=== PATIENT | female | born 1945 | race Caucasian/White ===

== ENCOUNTER → 2016-06-19 | Outpatient (CLI) | payer MEDICARE ==
[~2016-06-19] MED LIST: ASPI81TA28 PO; ATOR-22 PO; CALC8.5C PO; FLUO10CA48 PO; FLUO40CA8 PO; GLUCTAB18 PO; MULT-506 PO; PRLSR20 PO
[2016-06-19 15:59] LABS: CHOLESTEROL 167 mg/dl (0-200); CHOLESTEROL/HDL RATIO 2.1; HDL CHOLESTEROL 78 mg/dl; TRIGLYCERIDES 59 mg/dl (0-150); VERY LOW DENSITY LIPOPROT CALC 12 mg/dl
== END | disposition home or self-care (01) ==
LOC: C.LABSPEC 15:12
PROVIDERS: ATTEND Internal Medicine
DX: E78.5 Hyperlipidemia, unspecified (principal); Z11.59 Encounter for screening for other viral diseases

== ENCOUNTER → 2016-10-25 | Outpatient (CLI) | payer MEDICARE ==
--- NOTE | 2016-10-25 13:49 | MAMMOGRAPHY REPORT ---
BILATERAL DIGITAL SCREENING MAMMOGRAM WITH CAD: 10/25/2016 CLINICAL HISTORY: Routine screening. Patient has no complaints. TECHNIQUE: Current study was also evaluated with a Computer Aided Detection (CAD) system. Bilateral CC and MLO views were obtained. COMPARISON: Comparison is made to exams dated: 10/21/2015 mammogram, 09/16/2014 mammogram, 01/30/2012 m ammogram, 01/23/2011 mammogram - [facility], 06/24/2008, and 06/12/2007. BREAST COMPOSITION: There are scattered areas of fibroglandular density in both breasts. FINDINGS: No suspicious masses, calcifications, or areas of architectural distortion are noted in ei ther breast. There has been no significant interval change compared to prior exams. Scattered bilater al benign-appearing calcifications are not significantly changed. IMPRESSION: ACR BI-RADS CATEGORY 2: BENIGN There is no mammographic evidence of malignancy. A 1 year screening mammogram is recommended. The pa tient will receive written notification of the results. Approximately 10% of breast cancers are not detected with mammography. A negative mammographic report should not delay biopsy if a clinically suggestive mass is present. Chata Howard M.D. ah/:10/25/2016 12:47:57 Buttonhole Facer: Jennifer OWEN(Vibha)(Alicia), [facility] letter sent: Normal 1/2 BI-RADS Code: ACR BI-RADS Category 2: Benign
== END | disposition home or self-care (01) ==
LOC: C.MAMM 09:36
PROVIDERS: ATTEND Obstetrics & Gynecology
DX: Z12.31 Encounter for screening mammogram for malignant neoplasm of breast (principal)

== ENCOUNTER → 2017-01-14 | Outpatient (CLI) | payer MEDICARE ==
--- NOTE | 2017-01-14 10:55 | DIAGNOSTIC IMAGING REPORT ---
CHEST 2 VIEWS ROUTINE HISTORY: 71 years-old Female COUGH acute cough. COMPARISON: Chest radiograph 08/28/2010 TECHNIQUE: PA and lateral views of the chest FINDINGS: Cardiac silhouette is mildly enlarged. Retrocardiac opacity with air-fluid level suggests hiatal hernia with partially intrathoracic stomach, new from comparison. There is atherosclerosis of the aorta. There is no pneumothorax, pleural effusion, lobar airspace consolidation or overt pulmonary edema. Subsegmental linear opacity of the lingula is noted. Bones are grossly intact with degenerative changes about the bilateral shoulders. IMPRESSION: 1. Subsegmental atelectasis or scarring of the inferior segment lingular without acute cardiopulmonary process. 2. Moderate hiatal hernia with partially intrathoracic stomach, new from comparison study 08/28/2010. The above report was generated using voice recognition software. It may contain grammatical, syntax or spelling errors. Electronically signed by: Nehemias Tan M.D. 01/14/2017 10:54 AM Dictated Date/Time: 01/14/2017 10:52 AM
== END | disposition home or self-care (01) ==
LOC: C.RAD 10:22
PROVIDERS: ATTEND Internal Medicine
DX: R05 Cough (principal)

== ENCOUNTER → 2017-01-23 | Outpatient (CLI) | payer MEDICARE | END | disposition home or self-care (01) | LOC: C.PAPS 17:00 | PROVIDERS: ATTEND Obstetrics & Gynecology | DX: Z01.419 Encounter for gynecological examination (general) (routine) without abnormal findings (principal) ==

== ENCOUNTER → 2017-02-04 | Outpatient (CLI) | payer MEDICARE ==
[2017-02-04 18:52] LABS: BASO % 0.3 %; BASO ABS # 0.02 K/uL (0-0.2); COMPLETE YES; EOS % 2.1 %; HEMATOCRIT 40.4 % (37-47); IG% 0.3 %; LYMPH % 33.4 %; LYMPH ABS # 2.05 K/uL (1.2-3.4); MEAN CORPUSCULAR HEMOGLOBIN 29.5 pg (25-34); MEAN CORPUSCULAR HGB CONC 32.4 g/dl (32-36); MEAN PLATELET VOLUME 9.7 fL (7.4-10.4); NEUT % 55.9 %; PLATELET COUNT 286 K/uL (130-400); RED BLOOD COUNT 4.44 M/uL (4.2-5.4); WHITE BLOOD COUNT 6.13 K/uL (4.8-10.8)
[2017-02-04 19:04] LABS: ALT/SGPT 24 U/L (12-78); AST/SGOT 14 U/L (15-37); BLOOD UREA NITROGEN 6 mg/dl (7-18); BUN/CREATININE RATIO 7.8 (10-20); CALCIUM 9.1 mg/dl (8.5-10.1); CARBON DIOXIDE 29 mmol/L (21-32); CHLORIDE 103 mmol/L (98-107); CHOLESTEROL 233 mg/dl (0-200); CREATININE 0.81 mg/dl (0.60-1.20); GLUCOSE 85 mg/dl (70-99); POTASSIUM 3.7 mmol/L (3.5-5.1); SODIUM 137 mmol/L (136-145)
[2017-02-04 19:14] LABS: ALB/GLOB RATIO 0.9 (0.9-2); ALKALINE PHOSPHATASE 83 U/L (45-117); CHOLESTEROL/HDL RATIO 2.7; HDL CHOLESTEROL 86 mg/dl; TRIGLYCERIDES 86 mg/dl (0-150); VERY LOW DENSITY LIPOPROT CALC 17 mg/dl
== END | disposition home or self-care (01) ==
LOC: C.LABSPEC 18:13
PROVIDERS: ATTEND Internal Medicine
DX: E78.5 Hyperlipidemia, unspecified (principal); R53.83 Other fatigue; M85.80 Other specified disorders of bone density and structure, unspecified site

== ENCOUNTER → 2017-09-06 | Outpatient (CLI) | payer MEDICARE | END | disposition home or self-care (01) | LOC: C.LABSPEC 16:29 | PROVIDERS: ATTEND Internal Medicine | DX: N39.0 Urinary tract infection, site not specified (principal) ==

== ENCOUNTER → 2017-12-06 | Outpatient (CLI) | payer MEDICARE ==
--- NOTE | 2017-12-10 06:59 | MAMMOGRAPHY REPORT ---
BILATERAL DIGITAL SCREENING MAMMOGRAM TOMOSYNTHESIS WITH CAD: 12/06/2017 CLINICAL HISTORY: Routine screening. TECHNIQUE: The study was acquired using full field digital technology and interpreted from soft copy. Breast tomosynthesis in addition to standard 2D mammography was performed. Current study was also ev aluated with a Computer Aided Detection (CAD) system. COMPARISON: Comparison is made to exams dated: 10/25/2016 mammogram, 10/21/2015 mammogram, 09/16/2014 emeli mogram, 09/15/2013 mammogram, 01/30/2012 mammogram, and 01/23/2011 mammogram - [facility] nter. BREAST COMPOSITION: There are scattered areas of fibroglandular density in both breasts. FINDINGS: No suspicious masses, calcifications, or areas of architectural distortion are noted in either breast . There has been no significant interval change compared to prior exams. IMPRESSION: ACR BI-RADS CATEGORY 1: NEGATIVE There is no mammographic evidence of malignancy. A 1 year screening mammogram is recommended.( 019) The patient will receive written notification of the results. Some breast cancers are not detected with mammography. A negative mammographic report should not alexander y biopsy if a clinically suggestive mass is present. Chata Howard M.D. ah/:12/06/2017 15:35:56 Lockstitch Binder: RT Myke(Vibha)(M), [facility] letter sent: Normal 1/2 BI-RADS Code: ACR BI-RADS Category 1: Negative
== END | disposition home or self-care (01) ==
LOC: C.MAMM 14:43
PROVIDERS: ATTEND Obstetrics & Gynecology
DX: Z12.31 Encounter for screening mammogram for malignant neoplasm of breast (principal)

== ENCOUNTER 2022-11-30 21:45 | Observation (INO) ==
[2022-11-30] MEDS ORDERED: KETOROLAC TROMETHAMINE 15 MG/ML VIAL IV STA (21:52)
[2022-11-30] MEDS ORDERED: MoRPHine SULFATE 4 MG/ML 1 ML CARP\\VIAL IV STA (21:52)
[2022-11-30] MEDS ORDERED: ONDANSETRON INJ 2 MG/ML 2 ML VIAL IV STA (21:52)
[2022-11-30] MEDS ORDERED: ACETAMINOPHEN 1,000 MG/100 ML VIAL IV STA (21:52)
--- NOTE | 2022-11-30 21:58 | Emergency Department Note ---
Impression & Plan Fracture of proximal humerus, Fall ED Provider Note NAME: SATYA ALFORD AGE: 77 SEX: F : 1945 ARRIVES VIA: Ambulance INFORMANT: [Patient][ems] ED PROVIDER(S): [Stanley Sheffield MD] CHIEF COMPLAINT: Shoulder pain HISTORY OF PRESENT ILLNESS: The patient is a 77-year-old female who was in her normal state of health this evening. About an hour and a half ago, she caught her foot and tripped and fell onto her left shoulder. She has pain in the left shoulder itself, she is concerned for fracture. The pain is worse to move the shoulder. There was no loss of consciousness, no chest pain or shortness of breath or dizziness. She did not hit her head. She denies neck pain, back pain, chest pain or abdominal pain. She is not on blood thinning agents PMHx/PSHx: See Below SOCIAL HISTORY: See Below. PHYSICAL EXAM: GENERAL: Patient is in moderate distress from pain. HEENT: No acute trauma, normocephalic atraumatic, mucous membranes moist, no nasal congestion. NECK: No stridor, no adenopathy, nontender cervical spine, trachea is midline. LUNGS: Clear to auscultation bilaterally, no wheeze, no rhonchi, breath sounds equal. ABDOMEN: Soft, nontender, bowel sounds positive, no peritonitis. EXTREMITIES: No cyanosis. There is no obvious dislocation of the left shoulder however, she is quite painful to palpate the shoulder joint and to move the shoulder joint. There is a strong distal left radial pulse and the radial ulnar and median nerve on the left are intact. No pain to palpate or move the left elbow. NEUROLOGIC: Oriented x 3, no acute motor or sensory deficits, no focal weakness. SKIN: No rash, no jaundice, no diaphoresis. DIFFERENTIAL DIAGNOSIS: Shoulder fracture, shoulder dislocation, sprain, strain, contusion, neurovascular compromise, among others. EMERGENCY DEPARTMENT COURSE/PROCEDURES: Prior/Outside records reviewed: EMS notes. MEDICAL DECISION MAKING: The patient presents with pain in the left shoulder after falling onto the shoulder. It was a mechanical fall. There was no loss of conscious, chest pain or shortness of breath. No headache or neck pain. No chest pain. She had no numbness or tingling in the left upper extremity. Films of the left shoulder were performed, there was a humeral head and neck fracture per my review, no obvious dislocation by x-ray. A left shoulder CT was performed, there was no dislocation, a humeral head fracture was seen. The patient did receive IV morphine for pain, IV Toradol for pain, IV Tylenol for pain. She was given IV Zofran for nausea. Patient's pain is still severe. She has required nasal cannula O2 supplementation to offset the sedation caused by the narcotic pain meds administered. The patient is in need of a hospital stay. She will require pain control overnight. I did speak with orthopedics, Dr. Munroe. The patient does not require any emergent orthopedic intervention this evening. She needs close follow-up though to be sure things are healing properly. I did speak with case management, the on-call hospitalist was consulted. DISPOSITION: Patient's presentation and findings warrant a hospital stay. Past Med/Surg History Medical History Anxiety and depression GERD (gastroesophageal reflux disease) History of COVID-19 2021, home test, not hosp; no symptoms, had exposure>resolved. Mixed hyperlipidemia Obesity (BMI 30-39.9) Osteopenia Surgical History History of cataract surgery History of hip replacement Hx of colonoscopy Family History Grandfather (Paternal) Bone cancer Grandmother (Maternal) Pancreatic cancer Mother Heart disease Grandmother (Paternal) Stroke Grandmother (Maternal) Stroke Other No pertinent family history Denies family history of Ovarian cancer Prostate cancer Social History Smoking Status: Never smoker Second Hand Exposure: Yes (hx growing up); Do You Dip or Chew Tobacco: No; Hx Alcohol Use: Yes Hx Substance Use: No Preferred Language: American Communication Ability: Effective Visual Impairment: No Limitations Hearing Ability: Normal [employer] Required: No Beliefs That Will Affect Care: None marital status: Current Living Situation: Spouse current occupational status: retired Feels Safe at Home: Yes Dental Care, Regularly: Yes Physical Activity Frequency: 3-4 Times per Week Seatbelt Use: always Assistive Devices: Glasses Allergies Allergies Allergy/AdvReac Type Severity Reaction Status Date / Time No Known Allergies Allergy Verified 11/30/22 22:34 Home Meds Home Medications Medication Instructions Recorded Confirmed bupropion HCl 100 mg tablet,12 hr 100 mg PO QAM 04/18/20 11/30/22 sustained-release (Wellbutrin SR) multivitamin (Daily Multi-Vitamin 1 tab PO DAILY 04/18/20 11/30/22 tablet) glucosamine-chondroitin 250 mg-200 1 tab PO QAM 09/05/22 11/30/22 mg tablet (Osteo Bi-Flex) fluoxetine 20 mg tablet 20 mg PO QAM 10/09/22 11/30/22 mirtazapine 15 mg tablet 15 mg PO HS PRN anxiety 10/09/22 11/30/22 omeprazole 20 mg capsule,delayed 20 mg PO QAM 10/09/22 11/30/22 release Previous Rx's Medication Instructions Recorded atorvastatin 20 mg tablet 20 mg PO DAILY #90 tabs 12/27/21 fluoxetine 40 mg capsule 40 mg PO QAM #1 cap 08/06/22 Results & Data (ED) Vital Signs Vital Signs - 24 hr 11/30/22 21:46 11/30/22 22:40 Temperature 37 C Temperature Source Temporal Artery Scan Pulse Rate 83 Pulse Rate [Apical] 78 Respiratory Rate 18 17 Respiratory Depth Normal Blood Pressure 115/77 Blood Pressure [Right Arm] 124/73 Blood Pressure Mean 89 Blood Pressure Mean [Right Arm] 90 Pulse Oximetry 97 98 Oxygen Delivery Method Room Air Room Air Sepsis Recent Fever Within 48 Hours No Sepsis New/Unexplained Change in Mental Status No Sepsis Action Taken by Nursing No Action Required Home Medications Current Medication List: was personally reviewed by me Administered Medications Morphine Sulfate (Morphine Sulfate 4 Mg/Ml 1 Ml Carp\Vial) 4 mg IV Q15M PRN PRN Reason: Pain Stop: 12/14/22 21:53 Last Admin: 11/30/22 22:50 Dose: 4 mg Documented By: GA Discontinued Medications Acetaminophen (Ofirmev) 1,000 mg in 100 mls @ 400 mls/hr IV NOW STA Stop: 11/30/22 22:06 Last Infusion: 11/30/22 22:20 Dose: 0 mls/hr Documented By: Admin: 11/30/22 22:00 Dose: 400 mls/hr Documented By: GA Ketorolac Tromethamine (Ketorolac Tromethamine 15 Mg/Ml Vial) 15 mg IV NOW STA Stop: 11/30/22 21:53 Last Admin: 11/30/22 21:59 Dose: 15 mg Documented By: EMB Morphine Sulfate (Morphine Sulfate 4 Mg/Ml 1 Ml Carp\Vial) 4 mg IV NOW STA Stop: 11/30/22 21:53 Last Admin: 11/30/22 22:00 Dose: 4 mg Documented By: EMB Ondansetron HCl (Ondansetron Inj 2 Mg/Ml 2 Ml Vial) 4 mg IV NOW STA Stop: 11/30/22 21:53 Last Admin: 11/30/22 21:59 Dose: 4 mg Documented By: EMB Imaging Data My Impression: Left shoulder film: Per my review, there is a humeral head and neck fracture, no obvious humeral dislocation. Radiologist's Impression: Shoulder CT 11/30/22 22:18 Exam(s): CT LEFT SHOULDER Without Contrast EXAM: CT Left Upper Extremity Without Intravenous Contrast, Shoulder CLINICAL HISTORY: Reason for exam: fall, complex fx. TECHNIQUE: Axial computed tomography images of the left shoulder without intravenous contrast. CTDI is 24.58 mGy and DLP is 508.61 mGy-cm. Automated exposure control was utilized for the study. A dose lowering technique was utilized adhering to the principles of ALARA. COMPARISON: No relevant prior studies available. FINDINGS: Bones/joints: Comminuted minimally displaced fracture of the proximal left humerus. No dislocation. Soft tissues: Unremarkable. IMPRESSION: As above Electronically signed by: Calin Mayes MD 11/30/22 23:28 PM Discharge Plan Visit Data Chief Complaint: Shoulder Pain Stated Complaint: GROUND LEVEL FALL, SHOULDER PAIN ED Provider: Stanley Sheffield Discharge Problem: Fracture of proximal humerus, Fall Patient Disposition: Admitted As Inpatient Condition: Fair Forms Stand Alone Forms: My [facility], Virtual Emergency Department, Important Visit Information Prescriptions Prescriptions: No Action bupropion HCl [Wellbutrin SR] 100 mg tablet sustained-release 12 hr 100 mg PO QAM multivitamin [Daily Multi-Vitamin] Tablet 1 tab PO DAILY atorvastatin 20 mg tablet 20 mg PO DAILY Qty: 90 3RF fluoxetine 40 mg capsule 40 mg PO QAM Qty: 1 0RF Rx Instructions: TOTAL DOSE 60 MG--TAKES WITH 20 MG TAB. fluoxetine 20 mg tablet 20 mg PO QAM Rx Instructions: TOTAL DOSE 60 MG--TAKES WITH 40 MG CAP omeprazole 20 mg capsule,delayed release(DR/EC) 20 mg PO QAM mirtazapine 15 mg tablet 15 mg PO HS PRN (Reason: anxiety) glucosamine-chondroitin [Osteo Bi-Flex] 250-200 mg Tablet 1 tab PO QAM Referrals Referrals: Heather Durham MD [Primary Care Provider] - Andry Sheikh DO [Physician] - Fracture of proximal humerus Qualifiers: Encounter type: initial encounter Fracture type: closed Fracture morphology: other fracture Fracture alignment: displaced Laterality: left Qualified Code(s): S42.292A - Other displaced fracture of upper end of left humerus, initial encounter for closed fracture Fall Qualifiers: Encounter type: initial encounter Qualified Code(s): W19.XXXA - Unspecified fall, initial encounter
[2022-11-30] MEDS: MoRPHine SULFATE 4 MG/ML 1 ML CARP\\VIAL IV PRN (22:50)
--- NOTE | 2022-11-30 23:29 | CT Scan Report ---
Exam(s): CT LEFT SHOULDER Without Contrast EXAM: CT Left Upper Extremity Without Intravenous Contrast, Shoulder CLINICAL HISTORY: Reason for exam: fall, complex fx. TECHNIQUE: Axial computed tomography images of the left shoulder without intravenous contrast. CTDI is 24.58 mGy and DLP is 508.61 mGy-cm. Automated exposure control was utilized for the study. A dose lowering technique was utilized adhering to the principles of ALARA. COMPARISON: No relevant prior studies available. FINDINGS: Bones/joints: Comminuted minimally displaced fracture of the proximal left humerus. No dislocation. Soft tissues: Unremarkable. IMPRESSION: As above Electronically signed by: Calin Mayes MD 11/30/22 23:28 PM
[2022-12-01 00:22] LABS: Hemoglobin 11.3 g/dl (12.0-16.0); Mean Corpuscular Hgb Conc 33.2 g/dL (32.0-36.0); Mean Corpuscular Volume 90.2 fL (80.0-100.0); Mean Platelet Volume 9.9 fL (9.4-12.4); Platelet Count 226 K/uL (130-400); RDW Coefficient of Variation 14.3 % (11.5-14.5); RDW Standard Deviation 46.9 fL (36.4-46.3); Red Blood Count 3.77 M/uL (4.20-5.40)
--- NOTE | 2022-12-01 00:24 | History & Physical Report ---
Date of Service December 01, 2022 Assessment & Plan (1) Fracture of proximal humerus: Plan: -L shoulder XR + CT w/ comminuted minimally displaced fracture of L proximal humerus, s/p mechanical fall -Pt hemodynamically stable and injury with no evidence of neurovascular compromise on exam -Case discussed with orthopedics in ER- will not need emergent management -Orthopedics consulted for AM -Pain regimen -Tylenol 1000 mg IV q8h PRN -Morphine 2mg IV q4h PRN -PT/OT consulted (2) Hypoxia: Plan: -Secondary to opioid medication administration- morphine 4 mg IV x2 within 1 hour -Stable respiratory status on RA at time of my evaluation -Continue to monitor (3) Anxiety: Plan: -Continue fluoxetine -Mirtazapine PRN per home regimen (4) Depression: Plan: -Continue fluoxetine + Wellbutrin (5) GERD (gastroesophageal reflux disease): Plan: -Continue omeprazole or formulary equivalent (6) Mixed hyperlipidemia: Plan: -Continue atorvastatin Plan FENGI: Regular Code status: DNI DVT prophylaxis: SCDs, deferring Lovenox for now due to recent fall Isolation: None Disposition: Medical/surgical History of Present Illness Chief Complaint: L shoulder fracture Primary Care Provider: Heather Durham MD Pt is 77 yo F with PMH HLD, GERD, anxiety/depression presenting with shoulder pain s/p mechanical fall. Pt was at home earlier in evening and ambulating when she tripped and fell on L shoulder. She had immediate sharp pain over the entire shoulder afterward and came to ER for evaluation. Did not lose consciousness or have any preceding symptoms such as lightheadedness or dizziness prior to fall. No recent illnesses or medication changes. Pt arrived to ER hemodynamically stable. Initial evaluation significant for XR L shoulder and CT L shoulder demonstrating comminuted minimally displaced L proximal humerus fracture. CBC, BMP unremarkable. ER interventions include Toradol 15 mg IV, Zofran 4 mg IV, Tylenol 1000 mg IV, morphine 4 mg IV x2. Pt reportedly became hypoxic after administration of pain medications and started on 2L O2 NC. At present, pt reports no pain when laying at rest. She does report significant generalized L shoulder pain with any movement of the joint. Otherwise denies acute complaints, including dyspnea. Allergies Allergy/AdvReac Type Severity Reaction Status Date / Time No Known Allergies Allergy Verified 11/30/22 22:34 Home Medications Medication Instructions Recorded Confirmed Type bupropion HCl 100 mg tablet,12 hr 100 mg PO QAM 04/18/20 11/30/22 History sustained-release (Wellbutrin SR) multivitamin (Daily Multi-Vitamin 1 tab PO DAILY 04/18/20 11/30/22 History tablet) atorvastatin 20 mg tablet 20 mg PO DAILY #90 tabs 12/27/21 11/30/22 Rx fluoxetine 40 mg capsule 40 mg PO QAM #1 cap 08/06/22 11/30/22 Rx glucosamine-chondroitin 250 mg-200 1 tab PO QAM 09/05/22 11/30/22 History mg tablet (Osteo Bi-Flex) fluoxetine 20 mg tablet 20 mg PO QAM 10/09/22 11/30/22 History mirtazapine 15 mg tablet 15 mg PO HS PRN anxiety 10/09/22 11/30/22 History omeprazole 20 mg capsule,delayed 20 mg PO QAM 10/09/22 11/30/22 History release Past Med/Surg History Medical History Anxiety and depression GERD (gastroesophageal reflux disease) History of COVID-19 2021, home test, not hosp; no symptoms, had exposure>resolved. Mixed hyperlipidemia Obesity (BMI 30-39.9) Osteopenia Surgical History History of cataract surgery History of hip replacement Hx of colonoscopy Family History Grandfather (Paternal) Bone cancer Grandmother (Maternal) Pancreatic cancer Mother Heart disease Grandmother (Paternal) Stroke Grandmother (Maternal) Stroke Other No pertinent family history Denies family history of Ovarian cancer Prostate cancer Social History Smoking Status: Never smoker Second Hand Exposure: Yes (hx growing up); Do You Dip or Chew Tobacco: No; Hx Alcohol Use: Yes Hx Substance Use: No Preferred Language: Cambodian Communication Ability: Effective Visual Impairment: No Limitations Hearing Ability: Normal In Flight [employer] Member Required: No Beliefs That Will Affect Care: None marital status: Current Living Situation: Spouse current occupational status: retired Feels Safe at Home: Yes Dental Care, Regularly: Yes Physical Activity Frequency: 3-4 Times per Week Seatbelt Use: always Assistive Devices: Glasses Review of Systems Review of Systems: Per HPI/Subjective Physical Exam Physical Exam: General: well-appearing, no acute distress HEENT: PERRL, EOMI, conjunctivae clear without injection, anicteric sclerae, moist mucous membranes, clear oropharynx without exudate or erythema Neck: supple, trachea midline, no thyromegaly, no JVD, no cervical lymphadenopathy CV: RRR, normal S1 and S2, no murmurs Resp: CTAB, no increased work of breathing, no crackles or wheezes Abd: Soft, nontender, nondistended, no guarding or rebound, no hepatosplenomegaly MSK: Normal bulk of all four extremities. Tender to minimal palpation of L shoulder- over coracoid process + GH joint, no erythema or swelling noted. ROM testing Neuro: AOx3, no focal motor or sensory deficits- intact bronzer strength and sensorium of b/l UE Skin: no rashes or lesions, warm and dry Ext: no LE peripheral edema or erythema, capillary refill <2s in all four extremities, 2+ UE and LE peripheral pulses b/l Results & Data Results & Data Vital Signs (Past 12 Hours) Vital Signs Temp Pulse Pulse Resp BP BP Pulse Ox 11/30/22 22:40 78 17 124/73 98 11/30/22 21:46 37 C 83 18 115/77 97 O2 Del Method 11/30/22 22:40 Room Air 11/30/22 21:46 Room Air Supervising Physician Co-Signing Physician Notes Patient seen and examined, chart reviewed, case discussed with Dr. Quiñones and I agree with the assessment and plan as above. In brief, patient is a 77yo female with history of GERD presenting with left shoulder fracture following a ground level fall. Found to have a comminuted minimally displaced left proximal humerus fracture. On exam patient is resting in supine position, comfortable, NAD Skin - intact, no rashes/lesions HEENT - NC/AT, MMM, Neck supple Heart - +S1/S2, regular, no m/r/g Lungs - CTA Abd - +BS, soft, NT/ND Ext - warm, well perfused Labs and images reviewed Assessment/Plan - 77yo female presenting after ground level fall resulting in fracture of left proximal humerus Significant ongoing pain NV intact -Observation to medical for pain control -Ortho consultation appreciated Resident Activity Tracking Resident Involvement: Resident Care Provided Care Provided: Adult Hospital Medicine (1) Fracture of proximal humerus Encounter type: initial encounter Fracture alignment: displaced Fracture morphology: other fracture Fracture type: closed Laterality: left Qualified Code(s): S42.292A - Other displaced fracture of upper end of left humerus, initial encounter for closed fracture
[2022-12-01 00:31] LABS: BUN Creatinine Ratio 11.4 (10-20); Calcium 8.8 mg/dl (8.6-10.3); Creatinine Clr Calc Pharmacy 61.6 ml/min; Est GFR (African American) 84.3 ml/min; Est GFR (Non-African American) 72.7 ml/min; Potassium 3.5 mmol/L (3.5-5.1)
[2022-12-01] MEDS: MoRPHine SULFATE 4 MG/ML 1 ML CARP\\VIAL IV PRN (01:31)
--- NOTE | 2022-12-01 01:51 | Billing Data ---
Date of Service December 01, 2022 Coding Level of Care Code 79131 INT INP/OBS CARE
[2022-12-01] MEDS ORDERED: ACETAMINOPHEN 1,000 MG/100 ML VIAL IV PRN (02:02)
[2022-12-01] MEDS ORDERED: MIRTAZAPINE TAB 15 MG TAB PO PRN (02:02)
[2022-12-01] MEDS: MoRPHine SULFATE 2 MG/ML CARP IV PRN ×2 (06:08→10:15)
--- NOTE | 2022-12-01 07:29 | XRay Report ---
XR shoulder LT min 2V routine CLINICAL HISTORY: Fall. Left shoulder pain. COMPARISON STUDY: None. FINDINGS: Comminuted and displaced fracture within the left humeral neck which extends through the gr eater tuberosity of the humeral head. The greater tuberosity fragment demonstrates 9 mm of lateral di splacement. No dislocation. The left clavicle is intact. IMPRESSION: Left humeral head/neck fracture as above. No dislocation. ACT 112: Negative or not required by law. Electronically signed by: Jesus Baker M.D. 12/01/2022 7:28 AM
[2022-12-01] MEDS: ACETAMINOPHEN 500 MG TAB PO PRN ×2 (07:43→15:48)
[2022-12-01] MEDS: FLUoxetine HCL 20 MG CAP PO SCH (08:14)
[2022-12-01] MEDS: PANTOprazole 40 MG TAB PO SCH (08:15)
[2022-12-01] MEDS: ATORVASTATIN 20 MG TAB PO SCH (08:16)
[2022-12-01] MEDS: buPROPion SR 100 MG TABCR PO SCH (08:16)
--- NOTE | 2022-12-01 08:32 | Hospitalist Progress Note ---
Date of Service December 01, 2022 Assessment & Plan (1) Fracture of proximal humerus: Plan: - L shoulder XR + CT w/ comminuted minimally displaced fracture of L proximal humerus, s/p mechanical fall - Pt hemodynamically stable and injury with no evidence of neurovascular compromise on exam - inpatient pain regimen: Tylenol 1000 mg IV q8h PRN, Morphine 2mg IV q4h PRN - Orthopedics consulted - pt to remain in sling and f/u outpatient with them Saturday/Saturday this week, otherwise she is stable to leave from their perspective and will have sling for 6 weeks - PT/OT consulted - awaiting their evaluations Pt seen in the PM: Pt complaining of a lot of pain this afternoon, so will transition pt to oral pain management tonight to try to achieve reasonable po pain control prior to discharge, if she does well overnight can D/C tomorrow in the a.m. (2) Hypoxia: Plan: - suspect secondary to opioid medication administration- morphine 4 mg IV x2 within 1 hour - Stable respiratory status on RA at time of my evaluation - Continue to monitor, saturations last night good, will wean off oxygen today (3) Anxiety: Plan: -Continue fluoxetine -Mirtazapine PRN per home regimen (4) Depression: Plan: -Continue fluoxetine + Wellbutrin (5) GERD (gastroesophageal reflux disease): Plan: -Continue omeprazole or formulary equivalent (6) Mixed hyperlipidemia: Plan: -Continue atorvastatin Plan FENGI: Regular Code status: DNI DVT prophylaxis: SCDs, deferring Lovenox for now due to recent fall Isolation: None Disposition: Medical/surgical Admission and Anticipated Discharge Date Admission Date: December 01, 2022 Supervising Physician Co-Signing Physician Notes I personally examined the patient and verified kendrick points of history and exam, discussed case, and agree with decision making and plan documented by Dr. Kruse. Will transition patient to oral pain medications and anticipate discharge tomorrow. Subjective Pt is a 77 yo female with a past medical history of GERD, HLD, osteoporosis, and anxiety and depression who presents to the hospital on 11/30/22 for L proximal humerus fracture secondary to mechanical fall. Today, pt states she is feeling okay. She is still having significant L arm/shoulder pain, but states it is definitely better than it was yesterday. She otherwise states she is feeling well. She was able to eat breakfast without difficulty. No questions or concerns at this time. Review of Systems Review of Systems: Constitutional: denies fever, chills, Cardio: denies chest pain, palpitations Resp: denies shortness of breath, cough GI: denies abdominal pain, nausea, vomiting, Physical Exam Physical Exam: General:Alert and oriented, no acute distress, left arm in sling HEENT: Normocephalic, moist oral mucosa, Cardio: Regular rate and rhythm, Resp:Lungs clear to auscultation b/l, no wheezes or rhonchi, GI: Soft and nontender, nondistended, bowel sounds active Skin: Warm, pink, dry, Psych: Mood-affect congruence. Results & Data Results & Data Vital Signs (Past 12 Hours) Vital Signs Temp Pulse Pulse Pulse Resp BP BP 12/01/22 07:58 36.7 C 96 H 16 133/82 12/01/22 01:40 12/01/22 01:40 12/01/22 01:40 36.7 C 88 16 120/78 12/01/22 01:31 84 14 121/74 12/01/22 00:00 80 17 122/77 11/30/22 22:40 78 17 124/73 11/30/22 21:46 37 C 83 18 115/77 Pulse Ox O2 Del Method O2 Flow Rate 12/01/22 07:58 100 Nasal Cannula 2 12/01/22 01:40 Room Air, Nasal Cannula 2 12/01/22 01:40 Room Air, Nasal Cannula 2 12/01/22 01:40 96 Nasal Cannula 2 12/01/22 01:31 94 12/01/22 00:00 93 11/30/22 22:40 98 Room Air 11/30/22 21:46 97 Room Air Resident Activity Tracking Resident Involvement: Resident Care Provided Care Provided: Adult Hospital Medicine (1) Fracture of proximal humerus Encounter type: initial encounter Fracture alignment: displaced Fracture morphology: other fracture Fracture type: closed Laterality: left Qualified Code(s): S42.292A - Other displaced fracture of upper end of left humerus, initial encounter for closed fracture
--- NOTE | 2022-12-01 08:55 | Orthopedic Consultation ---
Date of Service December 01, 2022 Assessment & Plan (1) Fracture of proximal humerus: I talked her about the diagnosis and treatment options at bedside. This is a fracture that we can likely treat nonoperatively. She should do fairly well with it. I do want to follow her closely in the office with serial radiographs. She can follow-up in my office this week on Saturday or Saturday for repeat x- rays and to adjust her sling. She is orthopedically stable for discharge when medically ready. She will likely be in a sling for about 6 weeks. History of Present Illness Reason for Consultation: Left proximal humerus fracture. Requesting Physician: . Attending Physician: Ruth Godfrey DO Betty is a pleasant 77-year-old female who tripped and fell yesterday falling hard onto her left shoulder. She had immediate left shoulder pain. She came to the emergency room and radiographs demonstrated a moderately displaced four-part proximal humerus fracture. She was placed in a sling and admitted to the hospital for pain control. Orthopedics was consulted to evaluate and treat.. Allergies Allergy/AdvReac Type Severity Reaction Status Date / Time No Known Allergies Allergy Verified 11/30/22 22:34 Home Medications Medication Instructions Recorded Confirmed Type bupropion HCl 100 mg tablet,12 hr 100 mg PO QAM 04/18/20 11/30/22 History sustained-release (Wellbutrin SR) multivitamin (Daily Multi-Vitamin 1 tab PO DAILY 04/18/20 11/30/22 History tablet) atorvastatin 20 mg tablet 20 mg PO DAILY #90 tabs 12/27/21 11/30/22 Rx fluoxetine 40 mg capsule 40 mg PO QAM #1 cap 08/06/22 11/30/22 Rx glucosamine-chondroitin 250 mg-200 1 tab PO QAM 09/05/22 11/30/22 History mg tablet (Osteo Bi-Flex) fluoxetine 20 mg tablet 20 mg PO QAM 10/09/22 11/30/22 History mirtazapine 15 mg tablet 15 mg PO HS PRN anxiety 10/09/22 11/30/22 History omeprazole 20 mg capsule,delayed 20 mg PO QAM 10/09/22 11/30/22 History release Past Med/Surg History Medical History Anxiety and depression GERD (gastroesophageal reflux disease) History of COVID-19 2021, home test, not hosp; no symptoms, had exposure>resolved. Mixed hyperlipidemia Obesity (BMI 30-39.9) Osteopenia Surgical History History of cataract surgery RT/LT History of hip replacement RT. Hx of colonoscopy Family History Grandfather (Paternal) , 70s Bone cancer Grandmother (Maternal) , age 63 Pancreatic cancer Mother Heart disease Grandmother (Paternal) , 70s Stroke Grandmother (Maternal) Stroke Other No pertinent family history Denies family history of Ovarian cancer Prostate cancer Social History Smoking Status: Never smoker Second Hand Exposure: No; Do You Dip or Chew Tobacco: No; Hx Alcohol Use: Yes Alcohol type: wine Hx Substance Use: No Preferred Language: Italian Communication Ability: Effective Visual Impairment: No Limitations Hearing Ability: Normal Support Services Coordinator Required: No Beliefs That Will Affect Care: None marital status: Current Living Situation: Spouse current occupational status: retired Feels Safe at Home: Yes Dental Care, Regularly: Yes Physical Activity Frequency: 3-4 Times per Week Seatbelt Use: always Assistive Devices: Glasses Review of Systems All systems reviewed & are unremarkable except as noted in HPI & below. Physical Exam On physical examination of the left shoulder, she is wearing her sling as instructed. She has active motion of her hand and wrist. She does not have any ecchymosis she and there is no gross deformity.. Constitutional WD/WN, vitals as above Eyes PERRL, conjunctivae normal, anicteric sclerae ENMT external ear and nose normal, oropharynx normal Neck trachea midline, no thyromegaly Respiratory normal respiratory effort, lungs clear to auscultation Cardiovascular RRR, no murmur, no edema Gastrointestinal (Abdomen) normal bowel sounds, soft, nontender, no hepatosplenomegaly Skin no rashes, warm and dry Psychiatric A+Ox3, euthymic affect Results & Data Results & Data Laboratory Results . Diagnostic Findings X-rays and CT scan of the left shoulder were reviewed. There is a moderately displaced four-part left proximal humerus fracture. The humeral head still located within the glenoid. I do not see any intra-articular involvement. PG Care Time/CCT Total # of Minutes Spent Total Time Spent with Patient: Total time spent is greater than 50% in coordination of care (as documented) at patient's floor/unit and/or counseling patient: Coding Level of Care Code 85814 IN/OBS CONSULT LVL 4,60M Diagnoses Fracture of proximal humerus S42.292A Encounter type: initial encounter Fracture alignment: displaced Fracture morphology: other fracture Fracture type: closed Laterality: left (1) Fracture of proximal humerus Encounter type: initial encounter Fracture alignment: displaced Fracture morphology: other fracture Fracture type: closed Laterality: left Qualified Code(s): S42.292A - Other displaced fracture of upper end of left humerus, initial encounter for closed fracture
--- NOTE | 2022-12-01 14:42 | Discharge Summary ---
Date of Service December 01, 2022 Admission HPI Per Admitting Provider Pt is 77 yo F with PMH HLD, GERD, anxiety/depression presenting with shoulder pain s/p mechanical fall. Pt was at home earlier in evening and ambulating when she tripped and fell on L shoulder. She had immediate sharp pain over the entire shoulder afterward and came to ER for evaluation. Did not lose consciousness or have any preceding symptoms such as lightheadedness or dizziness prior to fall. No recent illnesses or medication changes. Pt arrived to ER hemodynamically stable. Initial evaluation significant for XR L shoulder and CT L shoulder demonstrating comminuted minimally displaced L proximal humerus fracture. CBC, BMP unremarkable. ER interventions include Toradol 15 mg IV, Zofran 4 mg IV, Tylenol 1000 mg IV, morphine 4 mg IV x2. Pt reportedly became hypoxic after administration of pain medications and started on 2L O2 NC. At present, pt reports no pain when laying at rest. She does report significant generalized L shoulder pain with any movement of the joint. Otherwise denies acute complaints, including dyspnea. Admission Exam Per Admitting Provider General: well-appearing, no acute distress HEENT: PERRL, EOMI, conjunctivae clear without injection, anicteric sclerae, moist mucous membranes, clear oropharynx without exudate or erythema Neck: supple, trachea midline, no thyromegaly, no JVD, no cervical lymphadeno moises CV: RRR, normal S1 and S2, no murmurs Resp: CTAB, no increased work of breathing, no crackles or wheezes Abd: Soft, nontender, nondistended, no guarding or rebound, no hepatosplenomegaly MSK: Normal bulk of all four extremities. Tender to minimal palpation of L shoulder- over coracoid process + GH joint, no erythema or swelling noted. ROM testing Neuro: AOx3, no focal motor or sensory deficits- intact gold wheel blocker and polisher strength and sensorium of b/l UE Skin: no rashes or lesions, warm and dry Ext: no LE peripheral edema or erythema, capillary refill <2s in all four extremities, 2+ UE and LE peripheral pulses b/l Principal Diagnosis Left proximal humerus fracture s/p mechanical fall. Discharge Exam General:Alert and oriented, no acute distress, left arm in sling HEENT: Normocephalic, moist oral mucosa, Cardio: Regular rate and rhythm, Resp:Lungs clear to auscultation b/l, no wheezes or rhonchi, GI: Soft and nontender, nondistended, bowel sounds active Skin: Warm, pink, dry, Psych: Mood-affect congruence. Discharge Data Allergies Allergy/AdvReac Type Severity Reaction Status Date / Time No Known Allergies Allergy Verified 11/30/22 22:34 Consultations 11/30/22 23:55 ED Decision to Admit Stat 12/01/22 01:08 Consult Orthopedic Surgery Routine Ordered Studies 11/30/22 22:18 CT shoulder LT wo con Stat Hospital Course (1) Fracture of proximal humerus: - L shoulder XR + CT w/ comminuted minimally displaced fracture of L proximal humerus, s/p mechanical fall - Pt hemodynamically stable and injury with no evidence of neurovascular compromise on exam - inpatient pain regimen: Tylenol 1000 mg IV q8h PRN, Morphine 2mg IV q4h PRN - Orthopedics consulted - pt to remain in sling and f/u outpatient with them Saturday/Saturday this week, otherwise she is stable to leave from their perspective and will have sling for 6 weeks - PT/OT consulted - awaiting their evaluations - will transition pt to oral pain management for discharge (2) Hypoxia: -Secondary to opioid medication administration- morphine 4 mg IV x2 within 1 hour -Stable respiratory status on RA at time of my evaluation -Continue to monitor, saturations last night good, will wean off oxygen today (3) Anxiety: -Continue fluoxetine -Mirtazapine PRN per home regimen (4) Depression: -Continue fluoxetine + Wellbutrin (5) GERD (gastroesophageal reflux disease): -Continue omeprazole or formulary equivalent (6) Mixed hyperlipidemia: -Continue atorvastatin Plan FENGI: Regular Code status: DNI DVT prophylaxis: SCDs, deferring Lovenox for now due to recent fall Isolation: None Disposition: Medical/surgical Discharge Plan Discharge Items Reason For Visit: SHOULDER FRACTURE Condition on Discharge: Fair Follow-up/Referrals: Heather Durham MD [Primary Care Provider] - Medications and DC Order Prescriptions: No Action bupropion HCl [Wellbutrin SR] 100 mg tablet sustained-release 12 hr 100 mg PO QAM multivitamin [Daily Multi-Vitamin] Tablet 1 tab PO DAILY atorvastatin 20 mg tablet 20 mg PO DAILY Qty: 90 3RF fluoxetine 40 mg capsule 40 mg PO QAM Qty: 1 0RF Rx Instructions: TOTAL DOSE 60 MG--TAKES WITH 20 MG TAB. fluoxetine 20 mg tablet 20 mg PO QAM Rx Instructions: TOTAL DOSE 60 MG--TAKES WITH 40 MG CAP omeprazole 20 mg capsule,delayed release(DR/EC) 20 mg PO QAM mirtazapine 15 mg tablet 15 mg PO HS PRN (Reason: anxiety) glucosamine-chondroitin [Osteo Bi-Flex] 250-200 mg Tablet 1 tab PO QAM Admission Data Admit Date/Time: 12/01/22 00:24 Attending Provider: Ruth Godfrey Admit Provider: Raymundo Quiñones Primary Care Provider: Heather Durham Other Providers: Jake Espinoza ; Shyla Bonds ; Jacqueline Bass ; Faisal Odonnell ; Nataly Powers ; Ginna Rubi ; Brendon Curtis ; Darshana Estrada ; Ryan Perez ; Andry Temple Brian A ; Marianne Curtis
[2022-12-01] MEDS: oxyCODONE/ACETAMINOPHEN 5mg/325mg TAB PO PRN (18:14)
[2022-12-01] MEDS ORDERED: FAMOTIDINE 20 MG TAB PO STA (20:36)
[2022-12-02] MEDS: oxyCODONE/ACETAMINOPHEN 5mg/325mg TAB PO PRN ×2 (01:01→10:43)
[2022-12-02] MEDS: MoRPHine SULFATE 2 MG/ML CARP IV PRN (06:08)
--- NOTE | 2022-12-02 07:21 | Discharge Summary ---
Date of Service December 02, 2022 Admission HPI Per Admitting Provider Pt is 77 yo F with PMH HLD, GERD, anxiety/depression presenting with shoulder pain s/p mechanical fall. Pt was at home earlier in evening and ambulating when she tripped and fell on L shoulder. She had immediate sharp pain over the entire shoulder afterward and came to ER for evaluation. Did not lose consciousness or have any preceding symptoms such as lightheadedness or dizziness prior to fall. No recent illnesses or medication changes. Pt arrived to ER hemodynamically stable. Initial evaluation significant for XR L shoulder and CT L shoulder demonstrating comminuted minimally displaced L proximal humerus fracture. CBC, BMP unremarkable. ER interventions include Toradol 15 mg IV, Zofran 4 mg IV, Tylenol 1000 mg IV, morphine 4 mg IV x2. Pt reportedly became hypoxic after administration of pain medications and started on 2L O2 NC. At present, pt reports no pain when laying at rest. She does report significant generalized L shoulder pain with any movement of the joint. Otherwise denies acute complaints, including dyspnea. Admission Exam Per Admitting Provider General: well-appearing, no acute distress HEENT: PERRL, EOMI, conjunctivae clear without injection, anicteric sclerae, moist mucous membranes, clear oropharynx without exudate or erythema Neck: supple, trachea midline, no thyromegaly, no JVD, no cervical lymphadenopathy CV: RRR, normal S1 and S2, no murmurs Resp: CTAB, no increased work of breathing, no crackles or wheezes Abd: Soft, nontender, nondistended, no guarding or rebound, no he patosplenomegaly MSK: Normal bulk of all four extremities. Tender to minimal palpation of L shoulder- over coracoid process + GH joint, no erythema or swelling noted. ROM testing Neuro: AOx3, no focal motor or sensory deficits- intact percher strength and sensorium of b/l UE Skin: no rashes or lesions, warm and dry Ext: no LE peripheral edema or erythema, capillary refill <2s in all four extremities, 2+ UE and LE peripheral pulses b/l Principal Diagnosis L proximal humerus fracture. Discharge Data Allergies Allergy/AdvReac Type Severity Reaction Status Date / Time No Known Allergies Allergy Verified 11/30/22 22:34 Consultations 11/30/22 23:55 ED Decision to Admit Stat 12/01/22 01:08 Consult Orthopedic Surgery Routine Ordered Studies 11/30/22 22:18 CT shoulder LT wo con Stat Hospital Course (1) Fracture of proximal humerus: (2) Hypoxia: (3) Anxiety: (4) Depression: (5) GERD (gastroesophageal reflux disease): (6) Mixed hyperlipidemia: Plan #Fracture of proximal humerus - L shoulder XR + CT w/ comminuted minimally displaced fracture of L proximal humerus, s/p mechanical fall - Pt hemodynamically stable and injury with no evidence of neurovascular compromise on exam - inpatient pain regimen: Tylenol 1000 mg IV q8h PRN, Morphine 2mg IV q4h PRN - Orthopedics consulted - pt to remain in sling and f/u outpatient with them Saturday/Saturday this week, otherwise she is stable to leave from their perspective and will have sling for 6 weeks - will send home with percocet for control of moderate-severe pain #Hypoxia - suspect secondary to opioid medication administration- morphine 4 mg IV x2 w ithin 1 hour on admission - Stable respiratory status on RA overnight #Anxiety -Continue fluoxetine -Mirtazapine PRN per home regimen #Depression - Continue fluoxetine + Wellbutrin #GERD - Continue omeprazole #Mixed hyperlipidemia - Continue atorvastatin Disposition: Home, pt states her son will be around to help out when she gets home. Total Time Total Time Spent Total Time Spent (In Minutes): As per attending attestation. Discharge Plan Discharge Items Patient Disposition: Home - Self-Care Reason For Visit: SHOULDER FRACTURE Discharge Diagnosis: Left proximal humerus fracture after mechanical fall. Condition on Discharge: Fair Activity: Per Instructions section Non-emergency contact: Primary Care Provider Call non-emergency contact if: you have any medication questions, your pain is not controlled and your temperature is above 101.5 Follow-up/Referrals: Heather Durham MD [Primary Care Provider] - 12/12/22 3:00 pm (APPOINTMENT WITH ROBINA ADAMES) Diet: Regular Addtl Attending Provider Instructions: You were admitted for left proximal humerus fracture. You were treated with an arm sling and medications to control your pain. Orthopedics is not planning to do surgery at this time, and we feel it is safe for you to go home with close follow-up. Medications: Your medication list has been reviewed and reconciled upon discharge to ensure accuracy and continuity of care. An updated list of all your medications is included with your hospital discharge paperwork. Please review this list closely, and make note of any changes. We sent a new medication called Percocet (oxycodone/acetaminophen) to your pharmacy. Take Percocet (oxycodone/acetaminophen) 5-325mg up to four times daily (every 6 hours) as needed for moderate to severe pain. If you have any issues filling these prescriptions, please call [phone] and ask to leave a message for Dr. Kruse Take your medications as instructed; do not skip a dose of your medicines. Make sure all of your doctors know every medicine you are taking (including [id number] medicines, vitamins, and supplements). Call your primary care provider before taking any new medicines (including over- the-counter medicines, vitamins, and supplements), because some of these may interact with your current medications, or may make your symptoms worse. Tell your primary care provider if you cannot afford your medications. Activity: You can do normal everyday activities as your body allows. Maintain your arm in the sling until follow-up with orthopedics this upcoming week, and expect to have the sling for the next 6 weeks. Take rest breaks if you feel tired. Do not overexert. Stop activity if you have pain, shortness of breath or feel dizzy. Follow-up appointments: Make an appointment with your primary care physician within one week of discharge. A copy of this summary will be sent to them. Every time you see your primary care physician, or any other doctor, bring your medication list, a list of questions, and your recent weights. CONTACT YOUR PRIMARY CARE PROVIDER if you experience any of the following: Shortness of breath or difficulty breathing Swelling of your feet, ankles, hands or abdomen Feeling tired with normal activity or experiencing dizziness or fainting Difficulty following your treatment plan, or difficulty taking medications CALL 911 OR GO TO THE EMERGENCY DEPARTMENT if you experience any of the following: Severe abdominal pain or nausea/vomiting Severe chest pain, or chest pain that radiates (moves) to your jaw or arm Sudden, severe shortness of breath or difficulty breathing Thank you for allowing us to participate in your care. Pending Studies at Discharge: No Stand-Alone Forms: [facility] Medications and DC Order Prescriptions: New oxycodone-acetaminophen [Percocet] 5-325 mg tablet 1 tab PO Q6H PRN (Reason: pain (scale score 7-10)) Qty: 15 0RF Continued bupropion HCl [Wellbutrin SR] 100 mg tablet sustained-release 12 hr 100 mg PO QAM multivitamin [Daily Multi-Vitamin] Tablet 1 tab PO DAILY atorvastatin 20 mg tablet 20 mg PO DAILY Qty: 90 3RF fluoxetine 40 mg capsule 40 mg PO QAM Qty: 1 0RF Rx Instructions: TOTAL DOSE 60 MG--TAKES WITH 20 MG TAB. fluoxetine 20 mg tablet 20 mg PO QAM Rx Instructions: TOTAL DOSE 60 MG--TAKES WITH 40 MG CAP omeprazole 20 mg capsule,delayed release(DR/EC) 20 mg PO QAM mirtazapine 15 mg tablet 15 mg PO HS PRN (Reason: anxiety) glucosamine-chondroitin [Osteo Bi-Flex] 250-200 mg Tablet 1 tab PO QAM Discharge Orders: Discharge Order (Routine); Ordered 12/02/22 Ordered By: Eleni Kruse Admission Data Admit Date/Time: 12/01/22 00:24 Attending Provider: Ruth Godfrey Admit Provider: Raymundo Quiñones Primary Care Provider: Heather Durham Other Providers: Jake Espinoza ; Shyla Bonds ; Jacqueline Bass ; Faisal Odonnell ; Nataly Powers ; Ginna Rubi ; Brendon Curtis ; Darshana Estrada Nathaniel L. ; Andry Temple Brian A ; Marianne Curtis Other Interventions: Discharge Summary Assessment (RN) Last Done: 12/02/22 11:03 Supervising Physician Co-Signing Physician Notes I personally examined the patient and verified kendrick points of history and exam, discussed case, and agree with decision making and plan documented by Dr. Say mcguire. Patient has follow-up scheduled with orthopedics. Discussed approach to pain control with use of opiates for severe pain, topical lidocaine, ice and rest. Patient understanding of the importance of wearing sling. Resident Activity Tracking Resident Involvement: Resident Care Provided Care Provided: Adult [facility] Medicine
[2022-12-02] MEDS: buPROPion SR 100 MG TABCR PO SCH (09:06)
[2022-12-02] MEDS: FLUoxetine HCL 20 MG CAP PO SCH (09:06)
[2022-12-02] MEDS: ATORVASTATIN 20 MG TAB PO SCH (09:06)
[2022-12-02] MEDS: PANTOprazole 40 MG TAB PO SCH (09:06)
== END 2022-12-02 12:04 | disposition home or self-care (01) ==
LOC: 3W 21:45 → ED 21:45 → SUATTDRO 12-01 00:24 → 3W 12-01 01:26